=== PATIENT | female | born 1970 | race Caucasian/White ===

== ENCOUNTER 2019-09-03 19:43 | Emergency (ER) | payer BC ==
[~2019-09-03] VITALS: Ht 167.6 cm; Wt 88.5 kg
[2019-09-03] MEDS ORDERED: IV NORMAL SALINE 1000ML BAG 1,000 ML IV ONE (20:00)
[2019-09-03] MEDS ORDERED: KETOROLAC 15 MG/ML VIAL. IVP ONE (20:00)
[2019-09-03] MEDS ORDERED: ORPHENADRINE CITRATE 60 MG/2 ML VIAL. IV ONE (20:00)
[2019-09-03] MEDS ORDERED: DEXAMETHASONE SOD PHOS 4 MG/ML VIAL IVP ONE (20:00)
[2019-09-03] MEDS ORDERED: fentaNYL PF VIAL 100 MCG/2 ML VIAL IV ONE (21:00)
[2019-09-03] MEDS ORDERED: BUTA1TAB23 PO (21:19)
--- NOTE | 2019-09-03 21:20 | PHYS DOC ---
Past Medical History Past Medical History: Depression, Migraines, Other Additional Past Medical Histor: Insulin Resistant? Past Surgical History: Cholecystectomy, , Other Additional Past Surgical Histo: arm tumors, sinus sx Additional Information: Nonsmoker Alcohol Use: Occasionally Drug Use: None Adult General Chief Complaint Chief Complaint: HEADACHE HPI HPI 49-year-old female presents with report of headache which started just prior to arrival. Reports worse to back of neck and travels to occiput. Denies fever or chills. Patient reports history of migraine headaches. Reports worse with bright lights and loud sounds. Denies trauma. Review of Systems Review of Systems Constitutional: Denies fever or chills Eyes: Denies redness; reports photophobia HENT: Denies nasal congestion or sore throat Respiratory: Denies cough or shortness of breath Cardiovascular: Denies chest pain or palpitations GI: Denies abdominal pain, nausea, or vomiting : Denies dysuria or hematuria Musculoskeletal: Denies back pain or joint pain Integument: Denies rash or skin lesions Neurologic: Reports headache; denies focal weakness or sensory changes Complete systems were reviewed and found to be within normal limits, except as documented in this note. Current Medications Current Medications Current Medications Medications (Trade) Dose Ordered Sig/Julio César Start Time Stop Time Status Last Admin Dose Admin Acetaminophen/ Butalbital/ Caffeine (Fioricet) 2 tab 1X ONCE 09/03/19 22:00 09/03/19 22:01 DC 09/03/19 21:47 2 TAB Dexamethasone Sodium Phosphate (Decadron) 10 mg 1X ONCE 09/03/19 20:00 09/03/19 20:05 DC 09/03/19 20:16 10 MG Fentanyl Citrate (Fentanyl 2ml Vial) 50 mcg 1X ONCE 09/03/19 21:00 09/03/19 21:01 DC 09/03/19 20:51 50 MCG Ketorolac Tromethamine (Toradol 15mg Vial) 15 mg 1X ONCE 09/03/19 20:00 09/03/19 20:05 DC 09/03/19 20:16 15 MG Orphenadrine Citrate (Norflex) 60 mg 1X ONCE 09/03/19 20:00 09/03/19 20:05 DC 09/03/19 20:15 60 MG Sodium Chloride 1,000 ml @ 1,000 mls/hr 1X ONCE 09/03/19 20:00 09/03/19 20:59 DC 09/03/19 20:15 1,000 MLS/HR Allergies Allergies Allergies Coded Allergies Type Severity Reaction Last Updated Verified No Known Drug Allergies 09/03/19 No Physical Exam Physical Exam Constitutional: Well developed, well nourished, no acute distress, non-toxic appearance HENT: Normocephalic, atraumatic, oropharynx moist Eyes: PERRL, EOMI, conjunctiva normal, no discharge Neck: Normal range of motion, upper paraspinal tenderness, supple, no meningeal signs Cardiovascular: Heart rate normal, regular rhythm Lungs & Thorax: Bilateral breath sounds clear to auscultation, no wheezing Abdomen: Soft, no tenderness Skin: Warm, dry, no erythema, no rash Extremities: No tenderness, ROM intact, no edema Neurologic: Alert and oriented X 3, normal motor function, normal sensory function, no focal deficits noted Psychologic: Affect anxious, judgement normal Current Patient Data Vital Signs Vital Signs Date Time Temp Pulse Resp B/P (MAP) Pulse Ox O2 Delivery O2 Flow Rate FiO2 09/03/19 22:16 79 98 09/03/19 20:51 Room Air 09/03/19 19:55 98.4 17 166/88 (114) 98.4 EKG EKG [] Radiology/Procedures Radiology/Procedures PROCEDURE: CT HEAD WO CONTRAST Exam: CT head INDICATION: Headache TECHNIQUE: Sequential axial images through the head were obtained without the administration of IV contrast. Comparisons: None FINDINGS: No focal parenchymal lesion or hemorrhage is identified. There is no midline shift or sulcal effacement. No acute vascular territory infarction is identified. Snow-white distinction is preserved. The ventricular system is within normal limits without compression hydrocephalus. The basal cisterns are well maintained. The visualized portions of the paranasal sinuses and mastoid air cells are well-pneumatized. No acute fractures. IMPRESSION: No acute intracranial abnormality. Exposure: One or more of the following in the visualized dose reduction techniques were utilized for this examination: 1. Automated exposure control 2. Adjustment of the MA and/or KV according to patient size Use of iterative of reconstructive technique Electronically signed by: Joey Copeland MD (09/03/2019 10:17 PM) [facility] Course & Med Decision Making Course & Med Decision Making Neurologically intact patient presents with report of headache starting at some occiput traveling to her top of her head. History of migraines. No history of recent trauma. Afebrile. No meningeal signs noted. Symptomatic treatment provided. Patient continued with complaint. O2 therapy provided for possible cluster headache. CT head ordered because of continued pain despite multiple medications. CT without acute process. Patient with interval improvement of symptoms. Patient stable for discharge with outpatient follow-up with PCP/neurology. Neurology referral provided. Discussed findings and plan with patient and family, who acknowledge understanding and agreement. Dragon Disclaimer Dragon Disclaimer This electronic medical record was generated, in whole or in part, using a voice recognition dictation system. Departure Departure Impression: Primary Impression: Headache Disposition: HOME, SELF-CARE Condition: STABLE Referrals: NANO CROCKER (PCP) GEO HUGHES MD, BRIAN N MD Patient Instructions: Cluster Headache, [id number], Headache, FAQs Scripts Butalb/Acetaminophen/Caffeine ([id number] [id number]) 1 Each Tablet 1 EACH PO Q6HRS PRN for HEADACHE, #14 TAB Prov: JULIETH LOPES DO 09/03/19 Problem Qualifiers Primary Impression: Headache Headache type: unspecified Headache chronicity pattern: acute headache Intractability: not intractable Qualified Codes: R51 - Headache JULIETH LOPES DO Sep 03, 2019 21:19
[2019-09-03] MEDS ORDERED: BUTALB/APAP/CAFEIN 50/325/40MG TABLET. PO ONE (22:00)
[2019-09-03 22:16] VITALS: BP 131/80
--- NOTE | 2019-09-03 22:20 | RAD ---
Exam: CT head INDICATION: Headache TECHNIQUE: Sequential axial images through the head were obtained without the administration of IV contrast. Comparisons: None FINDINGS: No focal parenchymal lesion or hemorrhage is identified. There is no midline shift or sulcal effacement. No acute vascular territory infarction is identified. Snow-white distinction is preserved. The ventricular system is within normal limits without compression hydrocephalus. The basal cisterns are well maintained. The visualized portions of the paranasal sinuses and mastoid air cells are well-pneumatized. No acute fractures. IMPRESSION: No acute intracranial abnormality. Exposure: One or more of the following in the visualized dose reduction techniques were utilized for this examination: 1. Automated exposure control 2. Adjustment of the MA and/or KV according to patient size Use of iterative of reconstructive technique Electronically signed by: Joey Copeland MD (09/03/2019 10:17 PM) [facility]
== END 2019-09-03 22:50 | disposition home or self-care (01) ==
LOC: ER 19:43
DX: G43.909 Migraine, unspecified, not intractable, without status migrainosus (principal)
CPT/HCPCS: 70450; 96374; 96375; 99285; J1100; J1885; J2360; J3010; J7030